=== PATIENT | male | born 1985 | race African-American/Black ===

== ENCOUNTER 2020-12-06 23:43 | Emergency (ER) | payer SELFPAY ==
--- NOTE | ~2020-12-06 | XR_ITS ---
EXAMINATION: XR hand RT min 3V DATE: 12/07/2020 00:28 INDICATION: Right hand pain. Injury. TECHNIQUE: 3 views of right hand on 4 radiographs were obtained. COMPARISON: None. FINDINGS: Bone alignment is normal. No acute fracture. There is an old healed fractures of fourth and fifth metacarpals. Joint spaces are normal. IMPRESSION: 1. No acute fracture. Reviewed, dictated and finalized at location A. IMPRESSION: 1. No acute fracture.
[2020-12-06 23:46] VITALS: BP 134/77; PULSE 84; RESP 16; TEMP 36.4; O2SAT 99
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
== END 2020-12-07 01:00 | disposition home or self-care (01) ==
PROVIDERS: Emergency Provider Emergency Medicine
DX: S62.336A Displaced fracture of neck of fifth metacarpal bone, right hand, initial encounter for closed fracture (principal); W22.09XA Striking against other stationary object, initial encounter
CPT/HCPCS: 29125; 73130; 99284

== ENCOUNTER 2021-01-25 17:19 | Emergency (ER) | payer SELFPAY ==
[2021-01-25 17:24] VITALS: BP 134/73; PULSE 92; RESP 22; TEMP 36.7; O2SAT 99
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
[2021-01-25] MEDS: ONDANSETRON INJ 4 MG/2 ML VIAL IV PUSH (18:13)
[2021-01-25] MEDS: MORPHINE SULFATE (*CRX) 4 MG/ML INJ IV PUSH (18:14)
[2021-01-25] MEDS: TETANUS,DIPHTHERIA,AC PERTUSSIS ADULT (0.5 ML) BOOSTRIX IM (18:41)
[2021-01-25 18:43] VITALS: BP 130/58; PULSE 64; RESP 18; O2SAT 100
== END 2021-01-25 19:04 | disposition home or self-care (01) ==
PROVIDERS: Emergency Provider Nurse Practitioner
DX: T20.27XA Burn of second degree of neck, initial encounter (principal); T20.13XA Burn of first degree of chin, initial encounter; T20.12XA Burn of first degree of lip(s), initial encounter; T31.0 Burns involving less than 10% of body surface; X12.XXXA Contact with other hot fluids, initial encounter; Z23 Encounter for immunization; F17.210 Nicotine dependence, cigarettes, uncomplicated
CPT/HCPCS: 90471; 90715; 96374; 96375; 99284; J2270; J2405

== ENCOUNTER 2021-03-31 07:45 | Emergency (ER) | payer MEDICAID, SELFPAY ==
[2021-03-31 07:53] VITALS: BP 127/85; PULSE 65; RESP 18; TEMP 36.9; O2SAT 100
[2021-03-31 08:34] LABS: Hematocrit 41.4 % (42.0-52.0); Hemoglobin 13.4 g/dL (14.0-18.0); Mean Corpuscular HGB Conc 32.4 g/dl (32-36); Mean Corpuscular Hemoglobin 28.2 pg (26-34); Mean Platelet Volume 11.6 fl (7.4-10.4); Platelet Count Result 194 k/mm3 (150-375); Red Blood Count 4.76 M/mm3 (4.6-6.20); White Blood Count 7.7 K/mm3 (4.5-10.0)
[2021-03-31 09:02] LABS: Anion Gap 5 mmol/L (8-16); Blood Urea Nitrogen 10 mg/dL (9-20); Calcium 8.7 mg/dL (8.4-10.2); Carbon Dioxide 25 mmol/L (22-30); Chloride 107 mmol/L (98-107); Estimated CRCL calculation 100 ml/min; Estimated Glomerular Filt Rate > 60; Glucose 89 mg/dL (75-110); Potassium 4.3 mmol/L (3.4-5.0); Sodium 137 mmol/L (137-145)
[2021-03-31 09:25] LABS: Lymphocytes Absolute Manual 2.15 K/mm3 (1.1-4.5); Monocytes Absolute Manual 0.23 K/mm3 (0.1-0.90); Monocytes Percent Manual 3 % (3-9); Neutrophils Percent Manual 69 % (46-73); Platelet Estimate Adequate (Adequate); Total Cells Counted 100
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
== END 2021-03-31 10:09 | disposition home or self-care (01) ==
PROVIDERS: Emergency Provider Emergency Medicine
DX: K21.9 Gastro-esophageal reflux disease without esophagitis (principal); F17.200 Nicotine dependence, unspecified, uncomplicated
CPT/HCPCS: 36415; 80048; 85025; 99283

== ENCOUNTER 2021-08-09 08:20 | Emergency (ER) | payer MEDICAID, SELFPAY ==
[2021-08-09 08:28] VITALS: BP 133/70; PULSE 81; RESP 20; TEMP 36.7; O2SAT 100
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
== END 2021-08-09 09:04 | disposition home or self-care (01) ==
PROVIDERS: Emergency Provider Registered Nurse
DX: J06.9 Acute upper respiratory infection, unspecified (principal); H65.02 Acute serous otitis media, left ear; Z20.822 Contact with and (suspected) exposure to COVID-19; F17.210 Nicotine dependence, cigarettes, uncomplicated; F12.90 Cannabis use, unspecified, uncomplicated
CPT/HCPCS: 87081; 87426; 87880; 99213; C9803; G0463

== ENCOUNTER 2022-11-21 08:33 | Emergency (ER) | payer MEDICAID, SELFPAY ==
[2022-11-21 08:41] VITALS: BP 124/78; PULSE 72; RESP 16; TEMP 36.7; O2SAT 100
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
== END 2022-11-21 09:08 | disposition short-term general hospital (02) ==
PROVIDERS: Emergency Provider Nurse Practitioner Family
DX: R10.30 Lower abdominal pain, unspecified (principal); F17.210 Nicotine dependence, cigarettes, uncomplicated
CPT/HCPCS: 99212; G0463

== ENCOUNTER 2023-02-14 09:09 | Emergency (ER) | payer MEDICAID, SELFPAY ==
--- NOTE | ~2023-02-14 | XR_ITS ---
XR ankle RT min 3V 02/14/2023 10:56 INDICATION: Right ankle pain PROCEDURE: 4 views right ankle COMPARISON: No prior studies for comparison. FINDINGS: Fracture, dislocation or subluxation is not identified. Ankle mortise is intact. The soft t issues appear within normal limits. No foreign bodies are identified. IMPRESSION: 1: NO ACUTE BONE OR JOINT ABNORMALITY IDENTIFIED. Reviewed, dictated and finalized at location B.
[2023-02-14 09:36] VITALS: BP 129/87; PULSE 77; RESP 18; TEMP 36.3; O2SAT 100
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
[2023-02-14] MEDS: IBUPROFEN 600 MG TABLET PO (11:42)
[2023-02-14] MEDS: ACETAMINOPHEN 500 MG TABLET 1000 MG PO (11:42)
[2023-02-14 11:52] VITALS: BP 120/74; PULSE 71; RESP 16; O2SAT 99
== END 2023-02-14 11:53 | disposition home or self-care (01) ==
LOC: ANHED 11:45
PROVIDERS: Emergency Provider Physician Assistant
DX: S93.401A Sprain of unspecified ligament of right ankle, initial encounter (principal); S96.911A Strain of unspecified muscle and tendon at ankle and foot level, right foot, initial encounter; F17.210 Nicotine dependence, cigarettes, uncomplicated; W22.8XXA Striking against or struck by other objects, initial encounter
CPT/HCPCS: 73610; 99283; A9270

== ENCOUNTER 2024-08-31 16:14 | Emergency (ER) | payer SELFPAY ==
--- NOTE | ~2024-08-31 | CT_ITS ---
EXAMINATION: CT abdomen pelvis w con DATE: 08/31/2024 19:08 INDICATION: Mid abdominal pain, vomiting TECHNIQUE: Computed tomography (CT) of the abdomen and pelvis was performed with 100 CC Omnipaque 350 intravenous contrast. Automated exposure control and iterative reconstruction technique were employe d. Exam dose: 285.14 mGy-cm total exam DLP. COMPARISON: None. FINDINGS: The lung bases are clear. Normal heart size. No pericardial or pleural effusion. The liver, gallbladder, bile ducts, pancreas, pancreatic duct, spleen and adrenal glands are unremark able. 11 mm upper pole left renal cyst. The kidneys are otherwise unremarkable. No urinary tract calculus o r hydroureteronephrosis is evident. The urinary bladder, prostate gland and seminal vesicles are unre markable. Normal caliber of the abdominal aorta. No intraperitoneal or retroperitoneal or pelvic mass lesion or adenopathy or ascites is detected. No CT evidence of appendicitis is noted. There are numerous fluid containing segments of small bowel which are not dilated. No bowel obstructi on, bowel wall thickening, pneumatosis or intraperitoneal free air is detected. Normal caliber of the abdominal aorta. No intraperitoneal or retroperitoneal or pelvic mass lesion or adenopathy or ascites. Included skeletal structures are unremarkable. IMPRESSION: Unremarkable examination Reviewed, dictated and finalized at [facility]. Reviewed, dictated and finalized at [facility]. PULLER IMPRESSION: Unremarkable examination
[2024-08-31 16:19] VITALS: BP 116/66; PULSE 86; RESP 20; TEMP 36.1; O2SAT 98
[2024-08-31 17:33] LABS: Basophils Percent Auto 0.3 % (0.2-1.2); Eosinophils Absolute Auto 0.1 K/mm3 (0-0.3); Eosinophils Percent Auto 0.4 % (0-4.4); Hemoglobin 15.5 g/dL (14.0-18.0); Immature Granulocyte Absolute 0.08 K/mm3 (0.00-0.031); Immature Granulocyte Percent A 0.5 % (0-0.5); Lymphocytes Absolute Auto 0.48 K/mm3 (0.9-3.2); Lymphocytes Percent Auto 3.3 % (18.3-44.2); Mean Corpuscular HGB Conc 33.7 g/dl (32-36); Mean Corpuscular Hemoglobin 28.2 pg (26-34); Mean Corpuscular Volume 83.8 fl (80-100); Monocytes Absolute Auto 0.5 K/mm3 (0.1-0.6); Monocytes Percent Auto 3.5 % (2.6-8.5); Neutrophils Absolute Auto 13.5 K/mm3 (1.3-6.7); Platelet Count Result 211 k/mm3 (150-375); Red Blood Count 5.49 M/mm3 (4.6-6.20); Red Cell Distribution Width 13.8 % (11.5-14.5); White Blood Count 14.7 K/mm3 (4.5-10.0)
[2024-08-31 17:41] LABS: Alanine Aminotransferase 22 U/L (6-50); Albumin Level 4.8 g/dL (3.5-5.1); Alkaline Phosphatase 70 U/L (38-126); Anion Gap 7 mmol/L (4-12); Aspartate Amino Transferase 28 U/L (17-59); Bilirubin,Total 0.8 mg/dL (0.2-1.3); Blood Urea Nitrogen 17 mg/dL (9-20); Calcium 9.1 mg/dL (8.4-10.2); Carbon Dioxide 24 mmol/L (22-30); Chloride 107 mmol/L (98-107); Estimated CRCL calculation 103 ml/min; Estimated Glomerular Filt Rate > 60; Glucose 104 mg/dL (65-110); Lipase 28 U/L (23-300); Sodium 138 mmol/L (137-145)
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
--- NOTE | 2024-08-31 17:58 | PC.NURSE ---
Pt states he is unable to urinate at this time, but is aware the MD would like a urine sample. Lab called to add on ordered lipase.
[2024-08-31] MEDS: SODIUM CHLORIDE 0.9% IV 2,000 ML 999 ML IV CONT (18:03)
[2024-08-31] MEDS: ONDANSETRON INJ 4 MG/2 ML VIAL 8 MG IV PUSH (18:04)
[2024-08-31 18:07] LABS: Lipase 33 U/L (23-300)
[2024-08-31 18:42] LABS: Influenza A QL RT-PCR Negative (Negative); Influenza B QL RT-PCR Negative (Negative); RSV RNA, RT-PCR Negative (Negative); SARS-CoV-2 RNA PCR Negative (Negative)
[2024-08-31 20:19] VITALS: BP 120/62; PULSE 82; RESP 19; O2SAT 100
== END 2024-08-31 20:20 | disposition home or self-care (01) ==
PROVIDERS: Student in an Organized Health Care Education/Training Program; Emergency Provider Emergency Medicine
DX: K52.9 Noninfective gastroenteritis and colitis, unspecified (principal); Z20.822 Contact with and (suspected) exposure to COVID-19; F17.210 Nicotine dependence, cigarettes, uncomplicated
CPT/HCPCS: 36415; 74177; 80053; 83690; 85025; 87637; 96361; 96374; 99284; J2405; J7030; Q9967

== ENCOUNTER 2024-09-21 17:50 | Emergency (ER) | payer SELFPAY ==
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
[2024-09-21 18:05] VITALS: BP 115/82; PULSE 89; RESP 16; TEMP 37.3; O2SAT 100
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
[2024-09-21] MEDS: IBUPROFEN 600 MG TABLET PO (19:15)
== END 2024-09-21 20:10 | disposition short-term general hospital (02) ==
PROVIDERS: Emergency Provider Nurse Practitioner
DX: S82.841A Displaced bimalleolar fracture of right lower leg, initial encounter for closed fracture (principal); F17.210 Nicotine dependence, cigarettes, uncomplicated; V86.56XA Driver of dirt bike or motor/cross bike injured in nontraffic accident, initial encounter
CPT/HCPCS: 29515; 73590; 73610; 73630; 99214; A9270; G0463

== ENCOUNTER 2024-09-21 20:37 | Emergency (ER) | payer SELFPAY ==
--- NOTE | ~2024-09-21 | CT_ITS ---
Noncontrast CT scan of the right ankle CLINICAL HISTORY: Fracture TECHNIQUE: Axial noncontrast imaging of the right ankle was performed. Sagittal and coronal reformatt ed images were constructed. Dose reduction technique was used on this scan by utilizing automated exp osure control and iterative reconstruction technique. The dose-length product (DLP) was 430.11 mGy-cm . Findings: There is a highly comminuted fracture of the distal tibial plafond/distal tibia, with intra -articular extension extending through the base the medial malleolus. Fracture fragments overall are mildly displaced, though there is significant articular surface disruption at the central aspect of t he distal tibial plafond. There are additional very small mineralization is near the lateral process of the talus which could i ndicate small avulsion fractures. Remaining joint spaces are intact. There is mild diffuse soft tissue edema. IMPRESSION: Comminuted fracture the distal tibial plafond and distal tibia with intra-articular extension, extend ing to the base the medial malleolus, as detailed above. Possible small avulsion fractures near the lateral process of the talus. Reviewed, dictated and finalized at location M. ESSIONAL PROGRAMMER ANALYST IMPRESSION: Comminuted fracture the distal tibial plafond and distal tibia with intra-artic ular extension, extending to the base the medial malleolus, as detailed above. Possible small avulsion fractures near the lateral process of the talus.
[2024-09-21 20:47] VITALS: BP 128/64; PULSE 78; RESP 20; TEMP 36.8; O2SAT 99
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
[2024-09-21] MEDS: IBUPROFEN 400 MG TABLET 800 MG PO (21:57)
[2024-09-21] MEDS: HYDROcodone/acetaminophen (*CRX) 7.5-325 MG TABLET 1 TAB PO (21:58)
--- NOTE | 2024-09-21 23:01 | PC.NURSE ---
Report received from BINA Nance. Assumed care of patient at this time.
[2024-09-21] MEDS: HYDROcodone/acetaminophen (*CRX) 5-325 MG TABLET 1 TAB PO (23:24)
[2024-09-21 23:50] VITALS: BP 112/68; PULSE 55; RESP 17; TEMP 36.4; O2SAT 99
[2024-09-21 23:54] VITALS: BP 112/68; PULSE 55; RESP 17; TEMP 36.4; O2SAT 99
== END 2024-09-22 00:06 | disposition home or self-care (01) ==
PROVIDERS: Emergency Provider Physician Assistant
DX: S82.841A Displaced bimalleolar fracture of right lower leg, initial encounter for closed fracture (principal); V28.09XA Other motorcycle driver injured in noncollision transport accident in nontraffic accident, initial encounter; F17.210 Nicotine dependence, cigarettes, uncomplicated
CPT/HCPCS: 29515; 73700; 99284; A9270